=== PATIENT | male | born 1995 | race Caucasian/White ===

== ENCOUNTER 2018-03-23 23:18 | Emergency (ER) | payer OTHER, BC ==
[~2018-03-23] VITALS: Ht 167.6 cm; Wt 59.0 kg
[~2018-03-23 23:18] MED LIST: BACTRIM DS TAB1 EACH PO; SEIZURE MED; ULTRAM 50MG TAB50 MG PO
[2018-03-23] MEDS ORDERED: PROAIR HFA8.5 GM INH (23:51)
[2018-03-23] MEDS ORDERED: PREDNISONE50 MG PO (23:51)
[2018-03-24] VITALS: BP 140/74
== END 2018-03-24 00:03 | disposition home or self-care (01) ==
LOC: M.ERS 23:18
DX: J40 Bronchitis, not specified as acute or chronic (principal); Z88.2 Allergy status to sulfonamides; Z91.013 Allergy to seafood

== ENCOUNTER 2019-07-27 14:24 | Emergency (ER) | payer OTHER ==
[~2019-07-27] VITALS: Ht 170.2 cm; Wt 61.2 kg
[~2019-07-27 14:24] MED LIST changes: +PREDNISONE50 MG PO; +PROAIR HFA8.5 GM INH
[2019-07-27 16:01] VITALS: BP 125/85
== END 2019-07-27 16:02 | disposition home or self-care (01) ==
LOC: M.ERS 14:24
DX: S51.812A Laceration without foreign body of left forearm, initial encounter (principal); F17.210 Nicotine dependence, cigarettes, uncomplicated; Z88.2 Allergy status to sulfonamides; Z91.013 Allergy to seafood; W26.0XXA Contact with knife, initial encounter; Y93.89 Activity, other specified; Y92.89 Other specified places as the place of occurrence of the external cause; Y99.8 Other external cause status